=== PATIENT | male | born 1985 | race Two or more races ===

== ENCOUNTER 2024-02-10 07:20 | Emergency (ER) | payer OTHER ==
[~2024-02-10] VITALS: Ht 180.3 cm; Wt 133.2 kg
[2024-02-10 07:40] VITALS: BP 117/81; PULSE 92; RESP 18; TEMP 97.9; O2SAT 97
[2024-02-10] MEDS: KETOROLAC TROMETH 60MG/2ML VIAL IM ONE (08:12)
[2024-02-10] MEDS ORDERED: IBUP-1456 PO (08:19)
== END 2024-02-10 08:24 | disposition home or self-care (01) ==
LOC: ER 07:20
DX: S93.502A Unspecified sprain of left great toe, initial encounter (principal); Z88.0 Allergy status to penicillin; Z88.1 Allergy status to other antibiotic agents; Z88.8 Allergy status to other drugs, medicaments and biological substances; W22.09XA Striking against other stationary object, initial encounter; Y93.89 Activity, other specified; Y92.89 Other specified places as the place of occurrence of the external cause; Y99.8 Other external cause status
CPT/HCPCS: 73630; 96372; 99283; J1885